=== PATIENT | male | born 1975 | race Hispanic/Latino ===

== ENCOUNTER 2021-08-09 15:16 | Emergency (ER) ==
[~2021-08-09 15:16] MED LIST: Iopamidol-370 76% 500 ML 1 ML ONE
[2021-08-09 16:40] LABS: #Lymphocytes 1.2 thou/uL (1.20-3.40); #Monocytes 0.4 thou/uL (0.11-0.59); %Basophils 0.1 % (0.0-1.0); %Eosinophils 0.2 % (0.0-10.0); %Monocytes 5.7 % (0.0-10.0); %Neutrophils 78.9 % (42.0-75.0); Hemoglobin 13.8 g/dL (14.0-18.0); Mean Corpuscular HGB CONC 33.6 g/dL (32.0-36.0); Mean Corpuscular Hemoglobin 30.6 pg (27.0-31.0); Mean Corpuscular Volume 91.2 fL (78.0-98.0); Platelet Count 163 thou/uL (130-400); RBC Distribution Width 12.5 % (11.5-14.5); White Blood Cell (WBC) Count 7.6 thou/uL (4.8-10.8)
[2021-08-09] MEDS ORDERED: Aspirin Chewable 81 MG TAB ONE (16:44)
[2021-08-09] MEDS ORDERED: Albuterol 200 PUFF (6.7GM INHALER) ONE (16:44)
[2021-08-09] MEDS ORDERED: Ondansetron PF 4 MG/2 ML Vial ONE (17:03)
[2021-08-09 17:06] LABS: ALT (SGPT) 114 U/L (8-55); AST (SGOT) 74 U/L (5-34); Albumin 4.2 g/dL (3.5-5.0); Alkaline Phosphatase 98 U/L (40-110); Anion Gap 15 mmol/L (10-20); BUN (Urea Nitrogen) 12 mg/dL (8.9-20.6); Bilirubin, Total 0.2 mg/dL (0.2-1.2); Calc. Creatinine Clearance 0 mL/min (70-130); Calcium 8.9 mg/dL (7.8-10.44); Carbon Dioxide 28 mmol/L (22-29); Chloride 99 mmol/L (98-107); Globulin 3.1 g/dL (2.4-3.5); Glucose 118 mg/dL (70-105); Potassium 4.4 mmol/L (3.5-5.1); Protein, Total 7.3 g/dL (6.0-8.3); Sodium 138 mmol/L (136-145)
[2021-08-09] MEDS ORDERED: Dexamethasone 4 mg/ml Vial ONE (17:35)
== END 2021-08-09 18:31 | disposition home or self-care (01) ==
LOC: ERS 15:16
DX: U07.1 COVID-19 (principal); R11.2 Nausea with vomiting, unspecified
CPT/HCPCS: 36415; 71045; 71275; 80053; 83605; 83880; 84484; 85025; 85379; 93005; 96374; 96375; J1100; J2405; Q9967

== ENCOUNTER 2021-08-13 10:04 | Inpatient (IN) | payer SELFPAY ==
[2021-08-13] MEDS ORDERED: Dexamethasone 10 MG/ML VIAL ONE (10:36)
[2021-08-13] MEDS ORDERED: Ondansetron PF 4 MG/2 ML Vial ONE (10:36)
[2021-08-13] MEDS ORDERED: Aspirin Chewable 81 MG TAB ONE (10:36)
[2021-08-13] MEDS ORDERED: Albuterol 200 PUFF (6.7GM INHALER) ONE (10:42)
[2021-08-13 10:51] LABS: #Basophils 0.1 thou/uL (0.0-0.2); #Lymphocytes 1.7 thou/uL (1.20-3.40); #Monocytes 0.8 thou/uL (0.11-0.59); #Neutrophils 9.5 thou/uL (1.40-6.50); %Basophils 0.7 % (0.0-1.0); %Eosinophils 0.2 % (0.0-10.0); %Lymphocytes 13.7 % (21.0-51.0); %Monocytes 6.5 % (0.0-10.0); %Neutrophils 78.9 % (42.0-75.0); Hemoglobin 13.6 g/dL (14.0-18.0); Mean Corpuscular HGB CONC 34.4 g/dL (32.0-36.0); Mean Corpuscular Hemoglobin 31.1 pg (27.0-31.0); Mean Corpuscular Volume 90.4 fL (78.0-98.0); Mean Platelet Volume 8.1 fL (7.4-10.4); Platelet Count 253 thou/uL (130-400); RBC Distribution Width 12.6 % (11.5-14.5); Red Blood Cell (RBC) Count 4.38 mill/uL (4.70-6.10)
[2021-08-13 11:15] LABS: ALT (SGPT) 73 U/L (8-55); AST (SGOT) 39 U/L (5-34); Albumin 3.9 g/dL (3.5-5.0); Alkaline Phosphatase 93 U/L (40-110); Anion Gap 17 mmol/L (10-20); BUN (Urea Nitrogen) 24 mg/dL (8.9-20.6); Bilirubin, Total 0.5 mg/dL (0.2-1.2); Calc. Creatinine Clearance 0 mL/min (70-130); Calcium 8.6 mg/dL (7.8-10.44); Carbon Dioxide 25 mmol/L (22-29); Chloride 104 mmol/L (98-107); Globulin 3.3 g/dL (2.4-3.5); Glucose 157 mg/dL (70-105); Potassium 4.1 mmol/L (3.5-5.1); Protein, Total 7.2 g/dL (6.0-8.3); Sodium 142 mmol/L (136-145)
[2021-08-13] MEDS ORDERED: cefTRIAXone\\ROCEPHIN 2 GM VIAL ONE (12:47)
[2021-08-13] MEDS ORDERED: Acetaminophen 650 MG Suppository PR PRN (13:59)
[2021-08-13] MEDS ORDERED: Ondansetron ODT 4 MG TAB PO PRN (13:59)
[2021-08-13] MEDS ORDERED: Ondansetron PF 4 MG/2 ML Vial IVP PRN (13:59)
[2021-08-13] MEDS ORDERED: Loperamide HCl 2 MG CAP PO PRN ×2 (13:59)
[2021-08-13] MEDS ORDERED: Enoxaparin Sodium 40 MG/0.4 ML SYRINGE SC SCH (14:00)
[2021-08-13] MEDS ORDERED: Sodium Chloride 0.9% 1,000 ML IV SCH (14:30)
[2021-08-13] MEDS ORDERED: Albuterol 200 PUFF (6.7GM INHALER) INH PRN (14:36)
[2021-08-13 15:20] VITALS: BMI 35.7
[2021-08-13 18:00] LABS: Hemoglobin A1c 6.4 % (4.0-6.0)
[2021-08-13] MEDS ORDERED: REMDESIVIR 200 MG in Sodium Chloride 0.9% 250 ML 210 ML IV SCH (18:00)
[2021-08-13 18:03] LABS: Magnesium 2.3 mg/dL (1.6-2.6)
[2021-08-13 18:27] LABS: Thyroid Stimulating Hormone 0.5727 uIU/mL (0.35-4.94)
[2021-08-13] MEDS: Dexamethasone 10 MG/ML VIAL SLOW IVP SCH (23:22)
[2021-08-14 00:58] LABS: SARS-CoV-2 PCR by NAA DETECTED (NotDetected)
[2021-08-14 05:37] LABS: #Basophils 0.1 thou/uL (0.0-0.2); #Lymphocytes 1.3 thou/uL (1.20-3.40); #Monocytes 0.7 thou/uL (0.11-0.59); #Neutrophils 6.2 thou/uL (1.40-6.50); %Basophils 0.9 % (0.0-1.0); %Eosinophils 0.2 % (0.0-10.0); %Lymphocytes 15.8 % (21.0-51.0); %Monocytes 8.8 % (0.0-10.0); %Neutrophils 74.2 % (42.0-75.0); Hemoglobin 12.8 g/dL (14.0-18.0); Mean Corpuscular HGB CONC 32.9 g/dL (32.0-36.0); Mean Corpuscular Hemoglobin 29.7 pg (27.0-31.0); Mean Corpuscular Volume 90.1 fL (78.0-98.0); Mean Platelet Volume 8.1 fL (7.4-10.4); Platelet Count 274 thou/uL (130-400); RBC Distribution Width 12.5 % (11.5-14.5); Red Blood Cell (RBC) Count 4.32 mill/uL (4.70-6.10); White Blood Cell (WBC) Count 8.4 thou/uL (4.8-10.8)
[2021-08-14 06:00] LABS: Anion Gap 12 mmol/L (10-20); BUN (Urea Nitrogen) 21 mg/dL (8.9-20.6); Calc. Creatinine Clearance 183 mL/min (70-130); Calcium 8.4 mg/dL (7.8-10.44); Carbon Dioxide 25 mmol/L (22-29); Chloride 107 mmol/L (98-107); Glucose 145 mg/dL (70-105); Potassium 4.5 mmol/L (3.5-5.1); Sodium 139 mmol/L (136-145)
[2021-08-14] MEDS: Ascorbic Acid 500 mg Chewable Tablet PO SCH (08:43)
[2021-08-14] MEDS: Enoxaparin Sodium 40 MG/0.4 ML SYRINGE SC SCH (08:43)
[2021-08-14] MEDS: Zinc Sulfate 220 MG CAP PO SCH (08:43)
[2021-08-14] MEDS: Dexamethasone 10 MG/ML VIAL SLOW IVP SCH ×2 (11:28→23:40)
[2021-08-14] MEDS: Acetaminophen 325 MG TAB PO PRN (16:15)
[2021-08-14] MEDS: REMDESIVIR 100 MG in Sodium Chloride 0.9% 250 ML 230 ML IV SCH (19:59)
[2021-08-14] MEDS: Guaifenesin DM 100-10/5 ML UDCUP PO PRN (20:08)
[2021-08-15 06:07] LABS: #Lymphocytes 1.6 thou/uL (1.20-3.40); #Monocytes 0.9 thou/uL (0.11-0.59); #Neutrophils 7.3 thou/uL (1.40-6.50); %Basophils 0.4 % (0.0-1.0); %Eosinophils 0.1 % (0.0-10.0); %Lymphocytes 16.2 % (21.0-51.0); %Monocytes 8.9 % (0.0-10.0); %Neutrophils 74.3 % (42.0-75.0); Mean Corpuscular HGB CONC 33.4 g/dL (32.0-36.0); Mean Platelet Volume 8.2 fL (7.4-10.4); Platelet Count 339 thou/uL (130-400); RBC Distribution Width 12.5 % (11.5-14.5); Red Blood Cell (RBC) Count 4.32 mill/uL (4.70-6.10); White Blood Cell (WBC) Count 9.9 thou/uL (4.8-10.8)
[2021-08-15 06:28] LABS: Anion Gap 17 mmol/L (10-20); BUN (Urea Nitrogen) 27 mg/dL (8.9-20.6); Calc. Creatinine Clearance 180 mL/min (70-130); Calcium 8.4 mg/dL (7.8-10.44); Carbon Dioxide 23 mmol/L (22-29); Chloride 108 mmol/L (98-107); Glucose 144 mg/dL (70-105); Potassium 4.9 mmol/L (3.5-5.1); Sodium 143 mmol/L (136-145)
[2021-08-15] MEDS: Ascorbic Acid 500 mg Chewable Tablet PO SCH (08:54)
[2021-08-15] MEDS: Zinc Sulfate 220 MG CAP PO SCH (08:54)
[2021-08-15] MEDS: Enoxaparin Sodium 40 MG/0.4 ML SYRINGE SC SCH (08:55)
[2021-08-15] MEDS: Dexamethasone 10 MG/ML VIAL SLOW IVP SCH ×2 (12:35→23:13)
[2021-08-15] MEDS: REMDESIVIR 100 MG in Sodium Chloride 0.9% 250 ML 230 ML IV SCH (20:29)
[2021-08-15] MEDS: Guaifenesin DM 100-10/5 ML UDCUP PO PRN (20:31)
[2021-08-16] MEDS: Zinc Sulfate 220 MG CAP PO SCH (08:35)
[2021-08-16] MEDS: Acetaminophen 325 MG TAB PO PRN (08:35)
[2021-08-16] MEDS: Enoxaparin Sodium 40 MG/0.4 ML SYRINGE SC SCH (08:35)
[2021-08-16] MEDS: Ascorbic Acid 500 mg Chewable Tablet PO SCH (08:36)
[2021-08-16] MEDS: Benzonatate 100 MG CAP PO PRN (08:36)
[2021-08-16] MEDS: Dexamethasone 10 MG/ML VIAL SLOW IVP SCH ×2 (10:44→22:47)
[2021-08-16 12:23] LABS: #Basophils 0.1 thou/uL (0.0-0.2); #Lymphocytes 2.1 thou/uL (1.20-3.40); #Monocytes 0.6 thou/uL (0.11-0.59); #Neutrophils 6.4 thou/uL (1.40-6.50); %Basophils 0.6 % (0.0-1.0); %Eosinophils 0.3 % (0.0-10.0); %Lymphocytes 23.1 % (21.0-51.0); %Monocytes 6.4 % (0.0-10.0); %Neutrophils 69.6 % (42.0-75.0); Hemoglobin 13.5 g/dL (14.0-18.0); Mean Corpuscular Hemoglobin 29.9 pg (27.0-31.0); Mean Corpuscular Volume 90.7 fL (78.0-98.0); Mean Platelet Volume 8.3 fL (7.4-10.4); Platelet Count 364 thou/uL (130-400); RBC Distribution Width 12.4 % (11.5-14.5); Red Blood Cell (RBC) Count 4.52 mill/uL (4.70-6.10); White Blood Cell (WBC) Count 9.2 thou/uL (4.8-10.8)
[2021-08-16 12:34] LABS: Anion Gap 17 mmol/L (10-20); BUN (Urea Nitrogen) 32 mg/dL (8.9-20.6); Calc. Creatinine Clearance 180 mL/min (70-130); Calcium 8.5 mg/dL (7.8-10.44); Carbon Dioxide 21 mmol/L (22-29); Chloride 107 mmol/L (98-107); Glucose 151 mg/dL (70-105); Potassium 4.7 mmol/L (3.5-5.1); Sodium 140 mmol/L (136-145)
[2021-08-16] MEDS: REMDESIVIR 100 MG in Sodium Chloride 0.9% 250 ML 230 ML IV SCH (20:56)
[2021-08-16] MEDS: Guaifenesin DM 100-10/5 ML UDCUP PO PRN (22:42)
[2021-08-17] MEDS: Enoxaparin Sodium 40 MG/0.4 ML SYRINGE SC SCH (07:38)
[2021-08-17] MEDS: Acetaminophen 325 MG TAB PO PRN ×2 (07:39→20:53)
[2021-08-17] MEDS: Zinc Sulfate 220 MG CAP PO SCH (07:40)
[2021-08-17] MEDS: Benzonatate 100 MG CAP PO PRN (07:40)
[2021-08-17] MEDS: Ascorbic Acid 500 mg Chewable Tablet PO SCH (07:40)
[2021-08-17 07:53] LABS: #Basophils 0.1 thou/uL (0.0-0.2); #Lymphocytes 2.1 thou/uL (1.20-3.40); #Neutrophils 8.7 thou/uL (1.40-6.50); %Basophils 0.8 % (0.0-1.0); %Eosinophils 0.2 % (0.0-10.0); %Lymphocytes 17.9 % (21.0-51.0); %Monocytes 8.1 % (0.0-10.0); Hemoglobin 13.5 g/dL (14.0-18.0); Mean Corpuscular HGB CONC 31.9 g/dL (32.0-36.0); Mean Corpuscular Hemoglobin 28.6 pg (27.0-31.0); Mean Corpuscular Volume 89.7 fL (78.0-98.0); Platelet Count 422 thou/uL (130-400); RBC Distribution Width 12.4 % (11.5-14.5); Red Blood Cell (RBC) Count 4.74 mill/uL (4.70-6.10); White Blood Cell (WBC) Count 11.9 thou/uL (4.8-10.8)
[2021-08-17 08:04] LABS: Anion Gap 15 mmol/L (10-20); BUN (Urea Nitrogen) 25 mg/dL (8.9-20.6); Calc. Creatinine Clearance 187 mL/min (70-130); Calcium 8.7 mg/dL (7.8-10.44); Carbon Dioxide 22 mmol/L (22-29); Chloride 105 mmol/L (98-107); Glucose 135 mg/dL (70-105); Potassium 5.1 mmol/L (3.5-5.1); Sodium 137 mmol/L (136-145)
[2021-08-17] MEDS: Dexamethasone 10 MG/ML VIAL SLOW IVP SCH ×2 (10:10→22:33)
[2021-08-17] MEDS: REMDESIVIR 100 MG in Sodium Chloride 0.9% 250 ML 230 ML IV SCH (20:29)
[2021-08-17] MEDS: Guaifenesin DM 100-10/5 ML UDCUP PO PRN (20:29)
[2021-08-18 07:52] LABS: Anion Gap 16 mmol/L (10-20); BUN (Urea Nitrogen) 23 mg/dL (8.9-20.6); Calc. Creatinine Clearance 201 mL/min (70-130); Calcium 8.5 mg/dL (7.8-10.44); Carbon Dioxide 21 mmol/L (22-29); Chloride 103 mmol/L (98-107); Glucose 132 mg/dL (70-105); Potassium 5.1 mmol/L (3.5-5.1); Sodium 135 mmol/L (136-145)
[2021-08-18 08:16] LABS: #Basophils 0.1 thou/uL (0.0-0.2); #Eosinphils 0.1 thou/uL (0.0-0.7); #Lymphocytes 2.2 thou/uL (1.20-3.40); #Neutrophils 9.7 thou/uL (1.40-6.50); %Basophils 0.9 % (0.0-1.0); %Eosinophils 0.6 % (0.0-10.0); %Lymphocytes 16.4 % (21.0-51.0); %Monocytes 7.8 % (0.0-10.0); %Neutrophils 74.3 % (42.0-75.0); Band 3 % (5-11); Hemoglobin 13.8 g/dL (14.0-18.0); Lymphocytes 25 % (21-51); MDiff Complete? YES; Mean Corpuscular HGB CONC 35.2 g/dL (32.0-36.0); Mean Corpuscular Hemoglobin 31.6 pg (27.0-31.0); Mean Corpuscular Volume 89.8 fL (78.0-98.0); Mean Platelet Volume 8.6 fL (7.4-10.4); Monocytes 5 % (0-10); Neutrophil 67 % (42-75); Platelet Count 394 thou/uL (130-400); Platelet Morphology Comment Appears Adequate; RBC Distribution Width 12.1 % (11.5-14.5); RBC Morphology Normal; Red Blood Cell (RBC) Count 4.37 mill/uL (4.70-6.10); White Blood Cell (WBC) Count 13.1 thou/uL (4.8-10.8)
[2021-08-18] MEDS: Zinc Sulfate 220 MG CAP PO SCH (08:39)
[2021-08-18] MEDS: Ascorbic Acid 500 mg Chewable Tablet PO SCH (08:39)
[2021-08-18] MEDS: Enoxaparin Sodium 40 MG/0.4 ML SYRINGE SC SCH (08:39)
[2021-08-18 08:54] VITALS: TEMP 98.2
[2021-08-18] MEDS: Dexamethasone 10 MG/ML VIAL SLOW IVP SCH (11:00)
[2021-08-18 12:25] VITALS: BP 127/82
== END 2021-08-18 15:27 | disposition home or self-care (01) | DRG 177 ==
LOC: ERS 10:04 → T4-B 12:24
PROVIDERS: ADMIT Internal Medicine; ATTEND Internal Medicine
PROC: 3E0333Z Introduction of Anti-inflammatory into Peripheral Vein, Percutaneous Approach (ICD-10-PCS; principal; 2021-08-13)
PROC: XW033E5 Introduction of Remdesivir Anti-infective into Peripheral Vein, Percutaneous Approach, New Technology Group 5 (ICD-10-PCS; 2021-08-13)
PROC: 8E0ZXY6 Isolation (ICD-10-PCS; 2021-08-13)
DX: U07.1 COVID-19 (principal); J12.82 Pneumonia due to coronavirus disease 2019; J96.01 Acute respiratory failure with hypoxia; R73.9 Hyperglycemia, unspecified; E66.9 Obesity, unspecified; Z79.899 Other long term (current) drug therapy; Z87.891 Personal history of nicotine dependence; Z68.35 Body mass index [BMI] 35.0-35.9, adult
CPT/HCPCS: 36415; 71045; 80048; 80053; 82607; 82746; 83036; 83735; 84443; 84484; 85025; 85652; 86140; 87040; 93005; 94760; 96365; 96375; J0696; J1100; J1650; J2405; J7050; Q0162; U0003; U0005

== ENCOUNTER 2023-07-26 21:57 | Emergency (ER) | payer OTHER, SELFPAY | END 2023-07-27 00:30 | disposition home or self-care (01) | LOC: ERS 21:57 | DX: U07.1 COVID-19 (principal) | CPT/HCPCS: 71046; 99284 ==

== ENCOUNTER 2025-09-30 15:53 | Emergency (ER) | payer SELFPAY ==
[2025-09-30] MEDS ORDERED: Dexamethasone 10 MG/ML VIAL ONE (19:41)
[2025-09-30] MEDS ORDERED: Ketorolac Tromethamine 30 MG (1 mL) VIAL ONE (19:41)
== END 2025-09-30 20:37 | disposition home or self-care (01) ==
LOC: ERS 15:53
DX: M87.9 Osteonecrosis, unspecified (principal); M51.369 Other intervertebral disc degeneration, lumbar region without mention of lumbar back pain or lower extremity pain; M48.061 Spinal stenosis, lumbar region without neurogenic claudication; F17.210 Nicotine dependence, cigarettes, uncomplicated
CPT/HCPCS: 72131; 72192; 96374; 96375; J1100; J1885; J2060; J3010